=== PATIENT | male | born 1960 | race Caucasian/White ===

== ENCOUNTER → 2017-06-06 | Outpatient (CLI) | payer OTHER, BC | END | disposition home or self-care (01) | LOC: PCVCIMAG 09:13 | DX: Z01.818 Encounter for other preprocedural examination (principal); I25.10 Atherosclerotic heart disease of native coronary artery without angina pectoris; I77.9 Disorder of arteries and arterioles, unspecified; E78.00 Pure hypercholesterolemia, unspecified; I10 Essential (primary) hypertension; Z79.82 Long term (current) use of aspirin; Z79.899 Other long term (current) drug therapy | CPT/HCPCS: 80061; 93005; 93880; G0463 ==

== ENCOUNTER → 2018-02-04 | Outpatient (CLI) | payer OTHER ==
--- NOTE | 2018-02-04 13:21 | PCVCIMAG ---
APPROVED REPORT Study performed: 02/04/2018 11:40:34 Exam: Stress Echocardiogram Indication: Hypertension, Hyperlipidemia, carotid disease Patient Location: Echo lab Stress Nurse: Iwona Morris RN Status: routine Ht: 5 ft 8 in HR: 75 bpm BP: 160/80 mmHg Rhythm: NSR Medical History Medical History: Carotid artery disease Procedure The patient underwent an Exercise Stress Test using the Ander Protocol. Blood pressure, heart rate, and EKG were monitored. An Echocardiogram was performed by lift team technician in four stages in quad fashion. At peak stress, four selected images were obtained and placed side by side with resting images for comparison. Stress Test Details Stress Test: Exercise stress testing was performed using a Ander protocol. HR Resting HR: 75 bpmMax Heart Rate (APMHR): 162 bpm Max HR Achieved: 160 bpmTarget HR (85% APMHR): 137 bpm % of APMHR: 98 Recovery HR: 96 bpm HR response to stress: Normal HR response to stress BP Resting BP: 160/80 mmHg Max BP: 194/80 mmHg Recovery BP: 162/82 mmHg BP response to stress: Normal blood pressure response to stress. ECG Resting ECG: Sinus Rhythm Stress ECG: Sinus Rhythm Recovery ECG: Sinus Rhythm Clinical Reason for Termination: Maximal effort Exercise duration: 10 min 02 sec Highest Stage Achieved: Stage 4: 4.2 mph at 16% grade. Exercise capacity: 13.40 METs Overall Exercise Capacity for Age: Normal Pre-Stress Echo The resting Echocardiogram showed normal left ventricular contractility with an estimated Ejection Fraction of about 55-60%. Normal wall motion in all segments on baseline images. Post-Stress Echo The stress Echocardiogram showed normal left ventricular contractility with an estimated Ejection Fraction of about 65-70%. Normal augmentation of wall motion in all segments on post stress images. Clinical No clinical or ECG evidence for ischemia. Conclusion Clinical Response: Non-ischemic Exercise Capacity: Average Stress ECG Response: Non-ischemic Stress Echo Images: Non-ischemic The left ventricle is normal in size and wall thickness in both the rest and stress images. Other Information Study Quality: Good <Conclusion> The left ventricle is normal in size and wall thickness in both the rest and stress images.
== END | disposition home or self-care (01) ==
LOC: PCVCIMAG 11:07
PROVIDERS: ATTEND Internal Medicine Cardiovascular Disease
DX: I25.10 Atherosclerotic heart disease of native coronary artery without angina pectoris (principal); E78.5 Hyperlipidemia, unspecified; I10 Essential (primary) hypertension; Z79.82 Long term (current) use of aspirin
CPT/HCPCS: 93325; 93351

== ENCOUNTER → 2018-11-05 | Outpatient (CLI) | payer OTHER ==
--- NOTE | 2018-11-05 12:31 | PCVCIMAG ---
APPROVED REPORT Laterality: Bilateral Indications Stenosis Surgery/Intervention Carotid Stent: Endarterectomy: right left Doppler Spectral Velocity Analysis PSV / EDVPSV / EDV ECA (R) 85 / 12 cm/sECA (L) 190 / 32 cm/s dICA (R) 66 / 18 cm/sdICA (L) 67 / 23 cm/s Tigist (R) 78 / 29 cm/smICA (L) 93 / 34 cm/s pICA (R) 68 / 17 cm/spICA (L) 104 / 31 cm/s Bulb (R) 43 / 12 cm/sBulb (L) 96 / 25 cm/s dCCA (R) 82 / 19 cm/sdCCA (L) 78 / 19 cm/s mCCA (R) 77 / 17 cm/smCCA (L) 77 / 21 cm/s Vert (R) 53 / 14 cm/sVert (L) 46 / 12 cm/s ICA/CCA ICA/CCA Findings The right carotid bulb has mild plaque. The right proximal internal carotid artery shows no significant stenosis, changes consistent with carotid endarterectomy. The right common carotid artery shows no significant stenosis. The right external carotid artery shows no significant stenosis. The left carotid bulb has moderate plaque. The left proximal internal carotid artery shows <40% stenosis. The left common carotid artery shows <40% stenosis. The left external carotid artery shows no significant stenosis. Conclusion 1. Right internal carotid artery plaquing without significant stenosis; prior carotid endarterectomy 2. Left internal carotid artery stenosis (<40%); prior carotid endarterectomy 3. Antegrade vertebral flow.
== END | disposition home or self-care (01) ==
LOC: PCVCIMAG 11:18
PROVIDERS: ATTEND Internal Medicine Cardiovascular Disease
DX: I65.22 Occlusion and stenosis of left carotid artery (principal); E78.2 Mixed hyperlipidemia; I25.10 Atherosclerotic heart disease of native coronary artery without angina pectoris; R00.1 Bradycardia, unspecified; I10 Essential (primary) hypertension; Z72.89 Other problems related to lifestyle; Z98.890 Other specified postprocedural states; Z79.82 Long term (current) use of aspirin; Z79.899 Other long term (current) drug therapy
CPT/HCPCS: 93880

== ENCOUNTER → 2019-01-26 | Outpatient (CLI) | payer OTHER ==
--- NOTE | 2019-01-26 13:24 | PCVCIMAG ---
APPROVED REPORT Study performed: 01/26/2019 09:45:46 Exam: Stress Echocardiogram Indication: CAD, elevated calcium score, bradycardia, htn Patient Location: Echo lab Stress Nurse: Iwona Morris RN Status: routine Ht: 5 ft 8 in HR: 73 bpm BP: 146/94 mmHg Rhythm: NSR Procedure The patient underwent an Exercise Stress Test using the Ander Protocol. Blood pressure, heart rate, and EKG were monitored. An Echocardiogram was performed by boiler technician in four stages in quad fashion. At peak stress, four selected images were obtained and placed side by side with resting images for comparison. Stress Test Details Stress Test: Exercise stress testing was performed using a Ander protocol. HR Resting HR: 73 bpmMax Heart Rate (APMHR): 161 bpm Max HR Achieved: 160 bpmTarget HR (85% APMHR): 136 bpm % of APMHR: 99 Recovery HR: 108 bpm HR response to stress: Normal HR response to stress BP Resting BP: 146/94 mmHg Max BP: 174/88 mmHg Recovery BP: 142/82 mmHg BP response to stress: Normal blood pressure response to stress. ECG Resting ECG: Sinus Rhythm Stress ECG: Sinus Rhythm ST Change: Normal Arrhythmia: None Recovery ECG: Sinus Rhythm Recovery ST Change: Normal Recovery Arrhythmia: None Clinical Reason for Termination: Maximal effort Stress Symptoms: Dyspnea Exercise duration: 10 min sec Highest Stage Achieved: Stage 4: 4.2 mph at 16% grade. Exercise capacity: 13.4 METs Overall Exercise Capacity for Age: Good Scale: Active Angina Score: None Pre-Stress Echo The resting Echocardiogram showed normal left ventricular contractility with an estimated Ejection Fraction of about >55%. The resting echocardiogram demonstrated normal wall motion in all wall segments. Post-Stress Echo The stress Echocardiogram showed normal left ventricular contractility with an estimated Ejection Fraction of about 65%. Compared to rest, there were no stress-induced wall motion abnormalities. Clinical No clinical or ECG evidence for ischemia. Conclusion Clinical Response: Non-ischemic Exercise Capacity: Average Stress ECG Response: Non-ischemic Stress Echo Images: Non-ischemic The left ventricle is normal in size and wall thickness in both the rest and stress images. Normal color doppler. No regurgitation or stenosis present on mitral, tricuspid and aortic valves. Mild-moderate pulmonic regurgitation. Other Information Study Quality: Adequate <Conclusion> The left ventricle is normal in size and wall thickness in both the rest and stress images. Normal color doppler. No regurgitation or stenosis present on mitral, tricuspid and aortic valves. Mild-moderate pulmonic regurgitation.
== END | disposition home or self-care (01) ==
LOC: PCVCIMAG 09:57
PROVIDERS: ATTEND Internal Medicine Cardiovascular Disease
DX: I37.1 Nonrheumatic pulmonary valve insufficiency (principal); I25.10 Atherosclerotic heart disease of native coronary artery without angina pectoris; E78.5 Hyperlipidemia, unspecified; I10 Essential (primary) hypertension; Z94.82 Intestine transplant status
CPT/HCPCS: 93325; 93351